=== PATIENT | female | born 1970 | race Two or more races ===

== ENCOUNTER 2019-01-28 05:32 | Emergency (ER) | payer OTHER ==
[~2019-01-28] VITALS: Ht 162.6 cm; Wt 68.0 kg
== END 2019-01-28 07:49 | disposition home or self-care (01) ==
LOC: ER 05:32
DX: S70.01XA Contusion of right hip, initial encounter (principal); S30.0XXA Contusion of lower back and pelvis, initial encounter; W18.39XA Other fall on same level, initial encounter; Y93.89 Activity, other specified; Y92.89 Other specified places as the place of occurrence of the external cause; Y99.8 Other external cause status